=== PATIENT | male | born 1960 | race Two or more races ===

== ENCOUNTER 2019-07-24 14:19 | Inpatient (IN) | payer OTHER, SELFPAY ==
[2019-07-24] VITALS (18 sets, daily range): BP systolic 100–126; BP diastolic 59–79
[~2019-07-24] VITALS: Ht 170.2 cm; Wt 88.5 kg
[2019-07-24] MEDS: POTASSIUM CHL 20MEQ/100ML 100 ML IV SCH ×2 (00:40→23:40)
[~2019-07-24 14:19] MED LIST: ASPI81CH43 PO; ATEN-60 PO; ATOR20TA50 PO; BENA10TA9 PO
[2019-07-24] MEDS ORDERED: SODIUM CHLORIDE 0.9% 1,000 ML IV ONE ×2 (14:33)
[2019-07-24] MEDS ORDERED: MIDAZOLAM DRIP 50 mg/50mL 50 ML IV ONE (14:34)
[2019-07-24] MEDS ORDERED: SUCCINYLCHOLINE CHLORIDE 20 MG/ML 10ML VIAL IV ONE ×2 (14:34→15:45)
[2019-07-24] MEDS ORDERED: ETOMIDATE (2MG/ML) 20ML VIAL IV ONE ×2 (14:35→15:45)
[2019-07-24] MEDS ORDERED: ASCORBIC ACID 500 MG TAB PO ONE (14:45)
[2019-07-24] MEDS ORDERED: cefTRIAXone 1GM/50ML D5W 50 ML IV ONE ×2 (14:45→16:00)
[2019-07-24] MEDS ORDERED: AZITHROMYCIN 500MG/ 250ML 250 ML IV ONE (14:45)
[2019-07-24] MEDS ORDERED: ZINC SULFATE 220mg CAP or TAB PO ONE (14:45)
[2019-07-24] MEDS: MIDAZOLAM DRIP 50 mg/50mL 50 ML IV SCH ×2 (14:53→22:00)
[2019-07-24] MEDS ORDERED: PROPOFOL 100 ML IV ONE (15:01)
[2019-07-24] MEDS: PROPOFOL 100 ML IV SCH ×2 (15:37→22:00)
[2019-07-24 15:45] LABS: Basophils # (auto) 0 10 ^3/uL (0-0.2); Basophils % (auto) 0.6 % (0.0-2.0); Eosinophils # (auto) 0.2 10 ^3/uL (0-0.8); Eosinophils % (auto) 3.4 % (0.0-7.0); Hematocrit 44.2 % (41.0-53.0); Hemoglobin 14.4 g/dL (13.5-17.5); Lymphocytes # (auto) 1.3 10 ^3/uL (0.4-5.4); Lymphocytes % (auto) 18.6 % (10.0-50.0); Mean Corpuscular Hemoglobin 27.3 pg (28.0-32.0); Mean Corpuscular Hgb Conc. 32.5 g/dL (32.0-36.0); Mean Corpuscular Volume 84.1 fL (80.0-100.0); Monocytes # (auto) 0.5 10 ^3/uL (0-1.3); Monocytes % (auto) 7.9 % (0.0-12.0); Neutrophils # (auto) 4.8 10 ^3/uL (1.6-8.6); Neutrophils % (auto) 69.5 % (37.0-80.0); Nucleated Red Blood Cells % 0.1 %; Platelet Count (auto) 354 10^3/uL (140-450); Red Blood Cells 5.26 10^6/uL (4.5-5.90); Red Cell Distribution Width 13.6 % (11.8-14.3); White Blood Cell 6.9 10^3/uL (4.4-10.8)
[2019-07-24] MEDS ORDERED: SODIUM CHLORIDE 0.9% 1,000 ML IV SCH (15:54)
[2019-07-24] MEDS ORDERED: NITROGLYCERIN 0.4 MG SL TAB SL PRN (16:00)
[2019-07-24] MEDS ORDERED: ACETAMINOPHEN 500 MG TAB PO PRN (16:00)
[2019-07-24] MEDS ORDERED: MORPHINE SULF INJ 2 MG/ML SYRINGE 1ML IV PRN (16:00)
[2019-07-24 16:03] LABS: INR 1.08 (0.9-1.15); Partial Thromboplastin Time 29.1 sec (23.64-32.05)
[2019-07-24 16:06] LABS: Urine Bacteria NONE SEEN /hpf (None Seen); Urine Blood 1+ /uL (Negative); Urine Specific Gravity 1.013 (1.001-1.035); Urine WBC <1 /hpf (0 - 3)
[2019-07-24 16:11] LABS: Alanine Aminotransferase 36 U/L (16-61); Albumin 2.4 g/dL (3.4-5.0); Anion Gap 7 (5-15); Aspartate Aminotransferase 42 U/L (15-37); BUN/Creatinine Ratio 13.1; Blood Urea Nitrogen 11 mg/dL (7-18); Calcium 7.6 mg/dL (8.5-10.1); Carbon Dioxide 25 mmol/L (21-32); Chloride 107 mmol/L (98-107); GFR African American 121 mL/min; GFR Non-African American 100 mL/min; Glucose 122 mg/dL (74-106); Magnesium 1.9 mg/dL (1.6-2.6); Sodium 139 mmol/L (136-145)
[2019-07-24 16:16] LABS: Alkaline Phosphatase 70 U/L (45-117); Bilirubin, Total 0.4 mg/dL (0.2-1.0); Total Protein 7.6 g/dL (6.4-8.2)
[2019-07-24 16:17] LABS: Potassium 2.9 mmol/L (3.5-5.1)
[2019-07-24 16:19] LABS: Lactic Acid w/Reflex 2.6 mmol/L (0.4-2.0)
[2019-07-24] MEDS ORDERED: POTASSIUM CHL 20MEQ/100ML 100 ML IV ONE ×2 (16:29→16:45)
[2019-07-24 16:36] LABS: CRP High Sensitivity 5.73 mg/dL (< 0.3)
[2019-07-24] MEDS ORDERED: MAGNESIUM SULFATE 1GM/100ML 100 ML IV ONE (19:30)
[2019-07-24] MEDS ORDERED: FUROSEMIDE 20 MG/2 ML VIAL IV ONE (19:30)
[2019-07-24] MEDS ORDERED: SOD CHL 0.9%/ KCL 40MEQ 1,000 ML IV SCH (19:30)
[2019-07-24] MEDS ORDERED: PANTOPRAZOLE 40 MG/10 ML VIAL INJ IV ONE (19:30)
--- NOTE | 2019-07-24 20:25 | NUR ---
RECEIVED REPORT FROM ERIN PEÑA IN ER. RECEIVED THE PATIENT INTO ROOM 266. RULE OUT COVID PATIENT. ETT TO PORTABLE VENTILATOR. MOVED PATIENT TO OUR BED. PLACED ON BEDSIDE MONITOR. VITAL SIGNS STABLE. RT PLACED THE PATIENT ON A VENTILATOR. RECTAL TEMP PROBE HOOKED UP. NORMOTENSIVE. NORMAL SINUS RHYTHM WITHOUT ECTOPY. RIJ TLC WITH PROPOFOL , VERSED AND A MAINTENANCE FLUID WITH KCL. BROWN PORT OPEN. BRITT. CLEAR ORAL SECRETIONS. SUCTIONED THE ETT FOR CLOUDY WHITE SECRETIONS. ABDOMEN SOFT. ORAL NGT CLAMPED. RESIDUAL WAS 15CC OF WHITE/YELLOW LIQUID. ALL EXTREMITIES WARM. ALL PULSES PALPABLE. PLACED SCDS. HAS AN 18 G IN HIS LEFT AC. SECURED THE IV AND DATED IT. BRITTON TO DOWN DRAIN BAG WITH CLEAR YELLOW LIQUID.
[2019-07-24] MEDS: ATORVASTATIN 20 MG TAB PO SCH (22:00)
[2019-07-24] MEDS ORDERED: ALBUTEROL SULF HFA 90MCG INH 200DOSE IN SCH (22:00)
[2019-07-24] MEDS ORDERED: ATORVASTATIN 20 MG TAB PO SCH (22:00)
--- NOTE | 2019-07-24 22:00 | NUR ---
PATIENT STARTED MOVING AND TRIED TO EXTUBATE HIMSELF. COUGHING. STOPPED THE PATIENT, REHOOKED THE ETT TO THE VENTILATOR TUBING. EXTENSIVE TUBING PLACED SO IV PUMP COULD BE OUTSIDE THE DOOR. STAYED WITH PATIENT TILL HE WAS SEDATED SAFELY.
[2019-07-24] MEDS: ALBUTEROL SULF 2.5 MG/0.5ML(0.5%) NEB SOLN NEB SCH (22:10)
[2019-07-25] VITALS (101 sets, daily range): BP systolic 84–122; BP diastolic 46–70
--- NOTE | 2019-07-25 | NUR ---
VITAL SIGNS STABLE. ON SUFFICIENT SEDATION. REPOSITIONED HIM TO HIS BACK. BRITTON DRAINING CLEAR YELLOW LIQUID. NSR WITHOUT ECTOPY. ONLY ON SEDATION. NO VASOPRESSORS
[2019-07-25] MEDS: MIDAZOLAM DRIP 50 mg/50mL 50 ML IV SCH ×4 (02:00→17:28)
--- NOTE | 2019-07-25 02:00 | NUR ---
NO CHANGE IN STATUS. NSR WITHOUT ECTOPY. SBP STABLE. FOLLOWING THE VENTILATOR. IV SHOWS NO REDNESS OR SWELLING.
[2019-07-25] MEDS: PROPOFOL 100 ML IV SCH ×3 (02:47→13:06)
--- NOTE | 2019-07-25 04:00 | NUR ---
VSS. NO CHANGE IN ASSESSMENT. REPOSITIONED. ORAL CARE DONE. LARGE URINE OUTPUT.
[2019-07-25] MEDS ORDERED: FUROSEMIDE 20 MG/2 ML VIAL IV SCH (06:00)
--- NOTE | 2019-07-25 06:00 | NUR ---
AM LABS SENT. CXR COMPLETED. REPOSITIONED TO LEFT SIDE. ORAL CARE DONE. SUCTIONED THE ETT FOR A SMALL AMOUNT OF CLOUDY WHITE SECRETIONS. RIGHT NARE NGT IS CLAMPED.
[2019-07-25] MEDS: ALBUTEROL SULF 2.5 MG/0.5ML(0.5%) NEB SOLN NEB SCH ×3 (06:18→22:10)
[2019-07-25 07:23] LABS: Basophils # (auto) 0 10 ^3/uL (0-0.2); Basophils % (auto) 0.5 % (0.0-2.0); Eosinophils # (auto) 0.3 10 ^3/uL (0-0.8); Hematocrit 41.1 % (41.0-53.0); Hemoglobin 13.4 g/dL (13.5-17.5); Lymphocytes # (auto) 1.1 10 ^3/uL (0.4-5.4); Mean Corpuscular Hemoglobin 27.3 pg (28.0-32.0); Mean Corpuscular Hgb Conc. 32.7 g/dL (32.0-36.0); Mean Corpuscular Volume 83.4 fL (80.0-100.0); Monocytes # (auto) 0.6 10 ^3/uL (0-1.3); Monocytes % (auto) 8.9 % (0.0-12.0); Neutrophils # (auto) 4.6 10 ^3/uL (1.6-8.6); Neutrophils % (auto) 69.6 % (37.0-80.0); Nucleated Red Blood Cells % 0.2 %; Platelet Count (auto) 382 10^3/uL (140-450); Red Blood Cells 4.92 10^6/uL (4.5-5.90); Red Cell Distribution Width 14.1 % (11.8-14.3); White Blood Cell 6.6 10^3/uL (4.4-10.8)
[2019-07-25 07:30] LABS: INR 1.04 (0.9-1.15); Partial Thromboplastin Time 29.3 sec (23.64-32.05)
[2019-07-25 07:36] LABS: Potassium 3.8 mmol/L (3.5-5.1)
--- NOTE | 2019-07-25 07:50 | NUR ---
ASSESS- PT. LYING IN BED ON VENT SIZE # 8.0 ET, 23 AT THE LIP, AC-16, TV-500, PEEP-5, FIO2-70%. PT. HAS GAG/COUGH REFLEX. LUNGS CLEAR ZACH. INSPIRATORY AND EXPIRATORY. ON VERSED GTT. AT 10 MG./HR. AND PROPOFOL GTT. AT 30 MCG. RESPONDS TO PAINFUL/TACTILE STIMULI. NO MOVEMENT OF EXTREMITIES SEEN AT THIS TIME. NGT RT. NARE CLAMPED, NPO. ABD. SOFT, FLAT. BOWEL SOUNDS ALL FOUR QUADRANTS. F/C TO GRAVITY WITH CLEAR YELLOW URINE. RADIAL PULSES STRONG, PALPABLE ZACH. DORSALIS PEDAL PULSES STRONG, PALPABLE ZACH. NO EDEMA. SCD'S ZACH. LE. SKIN INTACT. TLC RT. IJ INTACT WITH DSG. D/I. RECTAL PROBE IN PLACE. SBP 90'S. ON AIRBORNE PRECAUTIONS, R/O COVID-19.
[2019-07-25 07:53] LABS: Albumin 2.3 g/dL (3.4-5.0); BUN/Creatinine Ratio 11.5; Bilirubin, Total 0.4 mg/dL (0.2-1.0); CRP High Sensitivity 3.5 mg/dL (< 0.3); Calcium 7.8 mg/dL (8.5-10.1); Magnesium 2.6 mg/dL (1.6-2.6); Phosphorus 3.8 mg/dL (2.5-4.90); Total Protein 7.4 g/dL (6.4-8.2)
--- NOTE | 2019-07-25 09:10 | NUR ---
JUNIOR SULLIVAN Provider/Hospitalist at bedside. GAVE UPDATE ON PT. NEW ORDERS RECEIVED.
[2019-07-25] MEDS ORDERED: POTASSIUM CHL 20MEQ/100ML 100 ML IV ONE (09:30)
[2019-07-25] MEDS ORDERED: FUROSEMIDE 20 MG/2 ML VIAL IV ONE (09:30)
[2019-07-25] MEDS: PANTOPRAZOLE 40 MG/10 ML VIAL INJ IV SCH (09:44)
[2019-07-25] MEDS: cefTRIAXone 1GM/50ML D5W 50 ML IV SCH (09:44)
[2019-07-25] MEDS: ASPirin 81 mg TAB PO SCH (09:45)
[2019-07-25] MEDS: ASCORBIC ACID 1,000 MG TAB PO SCH (09:45)
[2019-07-25] MEDS: CHOLECALCIFEROL (VITD3) 1,000UNIT=25mCg TAB PO SCH (09:45)
[2019-07-25] MEDS: ENOXAPARIN SOD 100 MG/1 ML SYRINGE SC SCH ×2 (09:46→22:36)
[2019-07-25] MEDS: ZINC SULFATE 220mg CAP or TAB PO SCH (09:46)
[2019-07-25] MEDS ORDERED: ENOXAPARIN SOD 40 MG/0.4 ML SYRINGE SC SCH (10:00)
[2019-07-25] MEDS ORDERED: ATENOLOL 25 MG TAB PO SCH (10:00)
[2019-07-25] MEDS ORDERED: BENAZEPRIL HCL 10 MG TAB PO SCH (10:00)
[2019-07-25] MEDS: AZITHROMYCIN 500MG/ 250ML 250 ML IV SCH (10:57)
[2019-07-25] MEDS: fentaNYL Drip 2500mCg/250mlNS 250 ML IV SCH (10:57)
[2019-07-25] MEDS ORDERED: FUROSEMIDE 40 MG/4 ML VIAL ONE (11:27)
[2019-07-25 13:11] LABS: Alcohol, Urine < 3.0 mg/dL (0-5); Barbiturate Scree,Urine NEGATIVE (NEGATIVE); Benzodiazephine Screen, Urine POSITIVE (NEGATIVE); Cannabinoid Screen, Urine NEGATIVE (NEGATIVE); Cocaine Screen, Urine NEGATIVE (NEGATIVE); Opiate Scree,Urine NEGATIVE (NEGATIVE); Phencyclidine Screen, Urine NEGATIVE (NEGATIVE)
[2019-07-25 13:19] LABS: Amphetamine Screen, Urine NEGATIVE (NEGATIVE)
--- NOTE | 2019-07-25 13:49 | NUR ---
Called/paged JUNIOR SULLIVAN called re:. Waiting for call back. Continue care.
--- NOTE | 2019-07-25 13:50 | NUR ---
returned call NATE, JUNIOR returned call, updated on patient status and reason for call, orders received. Continue care.
--- NOTE | 2019-07-25 14:00 | NUR ---
SBP MID 80'S. SR, HR 80'S WITHOUT ECTOPY. STARTED PT. ON LEVOPHED GTT. AT 2 MCG. MONITORING BP.
[2019-07-25] MEDS: NOREPINEPHRINE 8 MG/250ML KIT 250 ML IV SCH (14:01)
--- NOTE | 2019-07-25 14:30 | NUR ---
SBP NOW IN THE 90'S. MONITORING BP.
--- NOTE | 2019-07-25 14:35 | NUR ---
TEMP 99.5 RECTALLY. PLACED ICE PACKS ZACH. AXILLA. NO COVERS ON PT.
--- NOTE | 2019-07-25 16:30 | NUR ---
TEMP 99.3 RECTALLY. ICE PACKS REMAIN IN PLACE ZACH. AXILLA.
--- NOTE | 2019-07-25 16:52 | NUR ---
DR. MARVIN Provider/Hospitalist at bedside. GAVE UPDATE ON PT. NEW ORDERS RECEIVED.
--- NOTE | 2019-07-25 17:40 | NUR ---
SET UP CVP VIA TLC RT. IJ VIA DISTAL PORT, ZEROED. CVP READING 14-15 CURRENTLY.
--- NOTE | 2019-07-25 18:00 | NUR ---
SBP ONE TEENS TO LOW 120'S. TITRATED OFF LEVOPHED GTT. MONITORING BP.
--- NOTE | 2019-07-25 18:36 | NUR ---
PT'S. DAUGHTER CALLED LEANNA MCCRARYOZ AND GAVE CONSENT FOR ARTERIAL LINE PLACEMENT TOMORROW BY DR. MARVIN. 2 RN'S VERIFIED FOR PHONE CONSENT.
--- NOTE | 2019-07-25 20:30 | NUR ---
Opening Shift Note Assumed care of patient, intubated, sedated. Breathing on ETT with AC mode ventilator, even and nonlabored, synchronized, No S/S of distress/SOB or pain. NGT to right nare, positive placement, no GI content noted, marked at nare 55 cms. TLC at right IJ, clean and dry site, Tegaderm slightly peeled off, will change d/s later. CVP zeroed and position transducer at mid 5th axilla. Noted TV at 55oml, will confirm with RT and MD order. Kaminski's catheter hung to gravity with clear light yue urine. Both hands on mittens. SCD on. Bed in low position, fall and safety precaution in place, on airborne isolation, all alarms are audible. No visitor allowed at this pandemic time, will continue to monitor for changes Q1hr and PRN.
--- NOTE | 2019-07-25 22:15 | NUR ---
Condition update Pt's condition and v/s stable. BT 99.9, will remain cooling measures and changed ice packs. RT at bedside. Continue monitoring.
[2019-07-25] MEDS: ATORVASTATIN 20 MG TAB PO SCH (22:35)
--- NOTE | 2019-07-25 23:45 | NUR ---
Patient bathe/linen change Patient given complete bath with CHG wipes. Skin integrity assessed for any changes, no new changes. Z-guard applied to karl area and sacrum. Kaminski's catheter changer fixer applied to right upper thigh. New NGT tape changed. Partial linens changed. Patient repositioned to prevent pressure ulcer. Cooling measures re-applied after bath. Mouth care done. Pt tolerated fairly due to coughing and grabbing the lines and tubes while awake and activities. Mittens re-applied for safety.
[2019-07-26] VITALS (99 sets, daily range): BP systolic 86–126; BP diastolic 47–73
[2019-07-26] MEDS: MIDAZOLAM DRIP 50 mg/50mL 50 ML IV SCH ×5 (00:03→21:12)
--- NOTE | 2019-07-26 02:12 | NUR ---
Condition update Pt's condition and v/s stable. No coughing. Fever decreased after bath. Body Temp 98.6F. Continue monitoring.
[2019-07-26 04:52] LABS: Basophils # (auto) 0.1 10 ^3/uL (0-0.2); Basophils % (auto) 0.8 % (0.0-2.0); Eosinophils # (auto) 0.3 10 ^3/uL (0-0.8); Eosinophils % (auto) 4.8 % (0.0-7.0); Hematocrit 38.7 % (41.0-53.0); Hemoglobin 12.7 g/dL (13.5-17.5); Lymphocytes # (auto) 1.5 10 ^3/uL (0.4-5.4); Mean Corpuscular Hemoglobin 27.4 pg (28.0-32.0); Mean Corpuscular Hgb Conc. 32.9 g/dL (32.0-36.0); Mean Corpuscular Volume 83.3 fL (80.0-100.0); Monocytes # (auto) 0.6 10 ^3/uL (0-1.3); Monocytes % (auto) 9.1 % (0.0-12.0); Neutrophils # (auto) 4.1 10 ^3/uL (1.6-8.6); Neutrophils % (auto) 62.3 % (37.0-80.0); Nucleated Red Blood Cells % 0.1 %; Platelet Count (auto) 394 10^3/uL (140-450); Red Blood Cells 4.64 10^6/uL (4.5-5.90); White Blood Cell 6.5 10^3/uL (4.4-10.8)
[2019-07-26 05:10] LABS: Albumin 2.3 g/dL (3.4-5.0); BUN/Creatinine Ratio 16.7; Potassium 3.7 mmol/L (3.5-5.1)
--- NOTE | 2019-07-26 05:10 | NUR ---
X-ray at bedside.
[2019-07-26 05:13] LABS: Bilirubin, Total 0.4 mg/dL (0.2-1.0); Total Protein 7.2 g/dL (6.4-8.2)
--- NOTE | 2019-07-26 05:20 | NUR ---
TLC d/s changed. TLC d/s started to peel off. TLC d/s done with sterile technique, Biopatch applied. Site CDI.
[2019-07-26] MEDS: PROPOFOL 100 ML IV SCH (05:54)
[2019-07-26] MEDS: ALBUTEROL SULF 2.5 MG/0.5ML(0.5%) NEB SOLN NEB SCH ×3 (06:00→22:05)
--- NOTE | 2019-07-26 06:00 | NUR ---
Summary Pt v/s and condition stable. Low grade fever. Fever subsided after AM care and cooling measures. Pt woke and reached to ETT when stimulated/ activities, gag reflex positive. No eyes opened. Scant saliva, scant sputum. UOP 315ml, cloudy light yue urine. Continue care and will endorse care to day nurse.
--- NOTE | 2019-07-26 07:30 | NUR ---
REPORT RECEIVED FROM HIGH LIFT DRIVER NURSE. PATIENT RESTING IN BED AT THIS TIME. RESPIRATIONS EVEN AND UNLABORED, INTUBATED AND SEDATED. NO SIGNS OF ACUTE DISTRESS NOTED. BED IN LOW POSITION. WILL CONTINUE TO MONITOR.
[2019-07-26] MEDS: cefTRIAXone 1GM/50ML D5W 50 ML IV SCH (08:17)
[2019-07-26] MEDS ORDERED: FUROSEMIDE 20 MG/2 ML VIAL IV ONE (08:45)
--- NOTE | 2019-07-26 08:50 | NUR ---
UPDATED DAUGHTER ON PATIENT STATUS. ALL QUESTIONS AND CONCERNS ADDRESSED. WILL CALL IF ANY CHANGES TO PATIENT STATUS.
--- NOTE | 2019-07-26 08:56 | NUR ---
NATE STANLEY CARTOGRAPHIC DESIGNER ON UNIT AND UPDATED ON PATIENT STATUS. ALL ORDERS NOTED IN CHART.
[2019-07-26] MEDS: fentaNYL Drip 2500mCg/250mlNS 250 ML IV SCH (09:29)
--- NOTE | 2019-07-26 10:00 | NUR ---
TEMP PATIENTS TEMP INCREASING, CURRENTLY 99.9F RECTALLY. APPLIED COOLING MEASURES TO PATIENT. WILL CONTINUE TO MONITOR.
[2019-07-26] MEDS: ASCORBIC ACID 1,000 MG TAB PO SCH (10:11)
[2019-07-26] MEDS: PANTOPRAZOLE 40 MG/10 ML VIAL INJ IV SCH (10:11)
[2019-07-26] MEDS: ZINC SULFATE 220mg CAP or TAB PO SCH (10:11)
[2019-07-26] MEDS: ENOXAPARIN SOD 100 MG/1 ML SYRINGE SC SCH ×2 (10:11→22:11)
[2019-07-26] MEDS: ASPirin 81 mg TAB PO SCH (10:11)
[2019-07-26] MEDS: CHOLECALCIFEROL (VITD3) 1,000UNIT=25mCg TAB PO SCH (10:12)
[2019-07-26] MEDS: AZITHROMYCIN 500MG/ 250ML 250 ML IV SCH (10:12)
--- NOTE | 2019-07-26 10:45 | NUR ---
WOUND CARE NOTE: PATIENT RECENTLY ADMITTED TO [facility] WITH DIAGNOSIS OF VIRAL PNA. HE HAS CURRENT KANE SCORE OF 12. PATIENT IS INTUBATED, SEDATED. PATIENT ON AIRBORNE PRECAUTIONS FOR POSITIVE COVID 19. HE CURRENTLY IS WOUND FREE. SKIN/WOUND CARE PLAN IMPLEMENTED. PATIENT WOULD BENEFIT FROM FREQUENT TURN SCHEDULE Q 2 HOURS, PRN CONDITION PERMITS, WITH PRESSURE REDISTRIBUTION USING PILLOWS/WEDGES, BID/PRN APPLICATION WITH MOISTURE BARRIER CREAM, OPTIFOAM GENTLE SACRAL DRESSING, DIETARY CONSULT, SKIN/WOUND CARE PLAN, CONTINUED MONITORING BY WOUND CARE TEAM.
[2019-07-26] MEDS: PIPERACILLIN-TAZOB 3.375GM 100 ML IV SCH ×3 (12:33→23:33)
[2019-07-26] MEDS: NOREPINEPHRINE 8 MG/250ML KIT 250 ML IV SCH (14:00)
--- NOTE | 2019-07-26 20:00 | NUR ---
Opening Shift Note Assumed care of patient, intubated and sedated, in airborne isolation with Hepa filter on. Breathing on ETT with AC mode ventilator, even and nonlabored, synchronized, No S/S of distress/SOB or pain. NGT on right nare, clamped, marked at 55 cms, positive position, scant clear gastric juice noted in the tube. TLC at right IJ, CDI site. 18G saline lock at left AC, CDI site, flushed well. Mittens on both hands for safety. Kaminski's catheter hung to gravity with cloudy light yue urine and sediments. SCD on both legs. Bed in low position, fall and safety precaution in place, all alarms are audible. No visitors allowed at this pandemic time, will continue to monitor for changes Q1hr and PRN.
--- NOTE | 2019-07-26 20:15 | NUR ---
IV insertion IV access obtained, via clean sterile technique by inserting 20 gauge catheter at RIGHT HAND after 1 attempt. IV secured properly. No trauma to site. Patient tolerated well.
--- NOTE | 2019-07-26 20:50 | NUR ---
Family called. Patient's condition and POC updated to Maria Alejandra; Patient's DTR. All questions and concerned answered, family verbalized understanding.
[2019-07-26] MEDS: ATORVASTATIN 20 MG TAB PO SCH (22:10)
--- NOTE | 2019-07-26 22:20 | NUR ---
Condition update Temp increased 100.4F rectally, Tylenol given as order. Cooling measures continue. CVP zeroed and leveled, 5 cmH2O. Rotated BP cuff to left upper arm. Re-positioned Pt to prevent pressure ulcer. Pillows off-loaded both legs an heels. RT at bedside. Mouth care and suction done, lips moisturizer applied. Urine with sediments. Kaminski's clamped for urine c/s. Continue monitoring and care.
[2019-07-27] VITALS (102 sets, daily range): BP systolic 83–133; BP diastolic 42–76
[2019-07-27] MEDS: MIDAZOLAM DRIP 50 mg/50mL 50 ML IV SCH ×5 (00:58→18:00)
--- NOTE | 2019-07-27 01:05 | NUR ---
Condition update Fever subsided after Tylenol given, temp 98.6F. Pt's condition stable. BP controlled with low dose Levophed at 4mcg. Breathing synchronized with ventilator, POX 98%. Continue monitoring.
--- NOTE | 2019-07-27 03:07 | NUR ---
Bed scale broken, unable to weigh. Addendum: 07/27/19 at 0308 by Quyen Jolly RN Amended: Links added.
--- NOTE | 2019-07-27 04:45 | NUR ---
Patient bathe/linen change Patient given complete bath with CHG wipes. Kaminski's catheter care done. All EKG electrodes changed. Skin integrity assessed for any changes, skin intact. Z-guard applied to karl area. Complete linens changed. Rectal probe tape changed. Patient repositioned to prevent pressure ulcer. Mouth care done. Lip moisturizing applied. SCD re-applied to both legs. Legs and heels off-loaded with pillows. Pt slightly coughing while turning, tolerated well, no desaturation or labored breathing. Continue care.
[2019-07-27] MEDS: fentaNYL Drip 2500mCg/250mlNS 250 ML IV SCH (04:50)
[2019-07-27 05:58] LABS: Basophils # (auto) 0.1 10 ^3/uL (0-0.2); Eosinophils # (auto) 0.3 10 ^3/uL (0-0.8); Eosinophils % (auto) 4.7 % (0.0-7.0); Hematocrit 39.6 % (41.0-53.0); Hemoglobin 13.1 g/dL (13.5-17.5); Lymphocytes # (auto) 1.9 10 ^3/uL (0.4-5.4); Lymphocytes % (auto) 26.4 % (10.0-50.0); Mean Corpuscular Hemoglobin 27.5 pg (28.0-32.0); Mean Corpuscular Hgb Conc. 33.2 g/dL (32.0-36.0); Monocytes # (auto) 0.6 10 ^3/uL (0-1.3); Monocytes % (auto) 8.9 % (0.0-12.0); Neutrophils # (auto) 4.2 10 ^3/uL (1.6-8.6); Nucleated Red Blood Cells % 0.1 %; Platelet Count (auto) 458 10^3/uL (140-450); Red Blood Cells 4.77 10^6/uL (4.5-5.90); Red Cell Distribution Width 14.1 % (11.8-14.3); White Blood Cell 7.1 10^3/uL (4.4-10.8)
[2019-07-27] MEDS: PIPERACILLIN-TAZOB 3.375GM 100 ML IV SCH ×4 (06:00→23:44)
--- NOTE | 2019-07-27 06:00 | NUR ---
Summary Condition stable. Max body temperature 100.4F decreased after Tylenol given to 98.6F. BP controlled with Levophed 2-4 mcg. Moderate to deep sedation with Fentanyl 50mcg, Propofol 10 and Versed 14. EKG showed SR with no ectopy. Positive cough and gag, small amount of oral and sputum amount. Cloudy urine with sediments, urine c/s sent. Continue care and will endorse to day shift. Addendum: 07/27/19 at 0705 by Quyen Jolly RN UOP 22.00pm 120ml 02.00am 100ml 06.00am 105ml Total 325ml CVP 4-9
[2019-07-27] MEDS: ALBUTEROL SULF 2.5 MG/0.5ML(0.5%) NEB SOLN NEB SCH ×3 (06:11→22:42)
[2019-07-27 06:15] LABS: Albumin 2.4 g/dL (3.4-5.0); Calcium 8.2 mg/dL (8.5-10.1); Potassium 3.4 mmol/L (3.5-5.1)
[2019-07-27 06:18] LABS: BUN/Creatinine Ratio 15.4; Bilirubin, Total 0.7 mg/dL (0.2-1.0); Total Protein 7.9 g/dL (6.4-8.2)
--- NOTE | 2019-07-27 06:30 | NUR ---
Family called. Patient's daughter; Maria Alejandra called, updated given to the daughter.
--- NOTE | 2019-07-27 07:30 | NUR ---
REPORT REPORT RECEIVED FROM SALAS RNMARCELINO. PT IN ISOLATION FOR + COVID 19. IN ROOM WITH SLIDING GLASS DOORS AND ABLE TO VISUALIZE PT, LIFE TESTER OUTBOARD MOTORS AND VENTILATOR. IV PUMPS OUTSIDE THE DOOR. PT APPEARS TO BE RESTING WITH NO DISTRESS NOTED. VSS. CONTINUE TO MONITOR.
[2019-07-27] MEDS: PROPOFOL 100 ML IV SCH ×2 (07:58→22:50)
[2019-07-27] MEDS: NOREPINEPHRINE 8 MG/250ML KIT 250 ML IV SCH (08:07)
--- NOTE | 2019-07-27 08:15 | NUR ---
PT TEACHING PT UNABLE TO BENEFIT FROM PT TEACHING AT THIS TIME PT IS SEDATED WHILE ON THE VENTILATOR. Addendum: 07/27/19 at 0940 by Wendy Francisco RN Amended: Links added.
--- NOTE | 2019-07-27 08:15 | NUR ---
ASSESSMENT PT IN ISOLATION FOR + COVID 19. PT INTUBATED AND SEDATED ON FENTANYL, DIPRIVAN AND VERSED. NO SPONTANEOUS MOVEMENT NOTED. MITTENS TO BOTH HANDS TO PREVENT REMOVAL OF ANY TUBES. VENTILATOR SETTINGS: 8 FR ETT/24 AT THE LIP, TV 500, AC 16, 50% FIO2 AND PEEP OF 8. LUNGS CLEAR THROUGHOUT BUT DIMINISHED AT THE BASES. SUCTIONED BOTH VIA ETT AND ORALLY FOR SCANT AMOUNT OF THIN CLEAR FLUID. TELE SR 76. PALPABLE PULSES TO ALL EXTREMITIES WITH NO EDEMA NOTED. SCS TO BLE. ABD SOFT WITH VERY HYPOACTIVE BOWEL SOUNDS. RIGHT NARES NGT WITH + PLACEMENT AND NO RESIDUAL NOTED. LAST BM IS UNKNOWN. BRITTON CATHETER DRAINING YELLOW URINE WITH SMALL AMOUNT OF SEDIMENT. TURNED PT TO HIS BACK AND SKIN IS INTACT. PT WITH PERIPHERAL IV TO RIGHT HAND, SALINE LOCK TO LAC AND RIJ TLC, ALL WITH SITES BENIGN. RAILS UP X4 AND BED IN LOW POSITION FOR PT SAFETY. CONTINUE TO MONITOR. Addendum: 07/27/19 at 1344 by Wendy Francisco RN TELE SR WITH ST ELEVATION IN LEADS I AND II.
[2019-07-27] MEDS: AZITHROMYCIN 500MG/ 250ML 250 ML IV SCH (09:55)
[2019-07-27] MEDS: PANTOPRAZOLE 40 MG/10 ML VIAL INJ IV SCH (09:55)
[2019-07-27] MEDS: ASPirin 81 mg TAB PO SCH (09:56)
[2019-07-27] MEDS: ZINC SULFATE 220mg CAP or TAB PO SCH (09:56)
[2019-07-27] MEDS: ENOXAPARIN SOD 100 MG/1 ML SYRINGE SC SCH ×2 (09:57→22:18)
[2019-07-27] MEDS: ASCORBIC ACID 1,000 MG TAB PO SCH (09:57)
[2019-07-27] MEDS: CHOLECALCIFEROL (VITD3) 1,000UNIT=25mCg TAB PO SCH (09:57)
--- NOTE | 2019-07-27 10:00 | NUR ---
PT REASSESSED AND TURNED FOR COMFORT. ADMINISTERED SCHEDULED MEDS. CONTINUE TO MONITOR.
--- NOTE | 2019-07-27 12:10 | NUR ---
LUNGS REMAIN CLEAR THROUGHOUT BUT DIMINISHED AT THE BASES POSTERIOR. SUCTIONED BOTH VIA ETT AND ORALLY WITH NO RETURN. O2 TURNED DOWN TO 45%. CONTINUE TO MONITOR O2 SATURATIONS.
--- NOTE | 2019-07-27 12:30 | NUR ---
TRUCK LEASING MANAGER/CARDIOLOGY MIKAYLA PENG, CARDIOLOGY TRUCK LEASING MANAGER, HERE TO CHECK ON PT. UPDATED ON CURRENT STATUS. PT WILL LIKELY HAVE AN ECHOCARDIOGRAM AND CARDIOLYTE STRESS TEST WHEN MORE STABLE AND OFF THE VENTILATOR.
--- NOTE | 2019-07-27 12:40 | NUR ---
MD VISIT DR MORTON HERE AND UPDATED ON THE PT'S CURRENT CONDITION, INCLUDING VS, ON LOW DOSE LEVOPHED, UOP, K OF 3.4 AND ASKED ABOUT NUTRITION. SHE STATED THAT SHE WILL PUT IN ORDERS.
[2019-07-27] MEDS ORDERED: FUROSEMIDE 40 MG/4 ML VIAL IV ONE (14:00)
[2019-07-27] MEDS ORDERED: Jevity 1.2 Cal/Fiber 1 Liter GT SCH (14:00)
--- NOTE | 2019-07-27 14:44 | NUR ---
Nutrition Assessment Notes Please refer to link for full assessment notes. Est Energy needs: 2909-7028 kcals (17-20 kcal/kgBW) Est Protein needs: 134 gms/day (2 gm/kgIBW) Will continue to monitor and reassess prn. Addendum: 07/27/19 at [address] Amended: Links added.
[2019-07-27] MEDS ORDERED: FUROSEMIDE INJECTION 10 ML ONE (15:45)
[2019-07-27] MEDS: POTASSIUM CHL 20MEQ/100ML 100 ML IV SCH ×2 (15:53→18:00)
--- NOTE | 2019-07-27 18:15 | NUR ---
SPOKE WITH PT'S DAUGHTER, MAHOGANY, AND UPDATED HER ON THE PT'S CURRENT CONDITION. I ANSWERED HER QUESTIONS.
--- NOTE | 2019-07-27 19:50 | NUR ---
REPORT REPORT GIVEN TO SAAD MARINA RN.
--- NOTE | 2019-07-27 20:00 | NUR ---
SHIFT OPENING NOTE RECEIVED PATIENT INTUBATED AND SEDATED. ON PROPOFOL AT 9, VERSED AT 10 AND FENT AT 50. GAG REFLEX INTACT. LEVOPHED AT 2, VENT SETTINGS AC 16, TV 500, FIO2 35%, PEEP 8, SMALL AMOUNT OF RED TINGED SECRETIONS SUCTIONED FROM ETT. NG TO RIGHT CARE. VERIFIED PLACEMENT, STARTED ON FEEDINGS, JEVITY AT 20 ML/H, GOAL IS 30 ML/H. BRITTON CATH DRAINING YELLOW URINE TO GRAVITY. RIGHT IJ 3 LUMEN INFUSING DRIPS. SCD'S ON. PHYSICAL ASSESSMENT COMPLETED, SEE INTERVENTIONS. WILL CLOSELY MONITOR.
[2019-07-27] MEDS: ATORVASTATIN 20 MG TAB PO SCH (22:18)
[2019-07-28] VITALS (94 sets, daily range): BP systolic 86–128; BP diastolic 52–74
--- NOTE | 2019-07-28 02:00 | NUR ---
ROUNDS PATIENT IS LAYING IN BED WITH EYES CLOSED. REMAINS INTUBATED AND SEDATED. VS STABLE. WILL CONTINUE TO CLOSELY MONITOR.
[2019-07-28] MEDS: ALBUTEROL SULF 2.5 MG/0.5ML(0.5%) NEB SOLN NEB SCH ×3 (06:03→22:00)
[2019-07-28] MEDS: PIPERACILLIN-TAZOB 3.375GM 100 ML IV SCH ×4 (06:30→23:35)
--- NOTE | 2019-07-28 06:45 | NUR ---
END OF SHIFT PATIENT IS LAYING IN BED CALMLY SLEEPING. INTUBATED AND SEDATED. ON PROP AT 10, VERSED AT 10 AND FENTANYL AT 100. WILL GIVE REPORT AND ENDORSE CARE TO THE DAY SHIFT RN.
[2019-07-28 06:57] LABS: Basophils # (auto) 0.1 10 ^3/uL (0-0.2); Basophils % (auto) 0.9 % (0.0-2.0); Eosinophils # (auto) 0.4 10 ^3/uL (0-0.8); Lymphocytes # (auto) 2.1 10 ^3/uL (0.4-5.4); Nucleated Red Blood Cells % 0.1 %
[2019-07-28 07:02] LABS: Eosinophils % (auto) 6.4 % (0.0-7.0); Lymphocytes % (auto) 30.6 % (10.0-50.0); Mean Corpuscular Hemoglobin 27.6 pg (28.0-32.0); Mean Corpuscular Hgb Conc. 33.3 g/dL (32.0-36.0); Mean Corpuscular Volume 82.9 fL (80.0-100.0); Monocytes # (auto) 0.5 10 ^3/uL (0-1.3); Monocytes % (auto) 7.2 % (0.0-12.0); Neutrophils # (auto) 3.8 10 ^3/uL (1.6-8.6); Neutrophils % (auto) 54.9 % (37.0-80.0); Platelet Count (auto) 491 10^3/uL (140-450); Red Cell Distribution Width 13.8 % (11.8-14.3)
[2019-07-28 07:28] LABS: Albumin 2.6 g/dL (3.4-5.0); Calcium 8.4 mg/dL (8.5-10.1); Potassium 3.8 mmol/L (3.5-5.1)
[2019-07-28 07:34] LABS: BUN/Creatinine Ratio 12.6; Bilirubin, Total 0.5 mg/dL (0.2-1.0)
--- NOTE | 2019-07-28 07:45 | NUR ---
AM ASSESSMENT COMPLETED. ALARMS VERIFIED. CHART CHECK DONE.
--- NOTE | 2019-07-28 09:15 | NUR ---
[id number] PT'S BP CUFF WAS TAKEN OFF BY RT FOR ABG DRAW AND FORGOTTEN TO BE PLACED BACK ON. PT'S BP WNL WHEN CUFF WAS PUT BACK ON.
[2019-07-28] MEDS: AZITHROMYCIN 500MG/ 250ML 250 ML IV SCH (09:35)
[2019-07-28] MEDS: PANTOPRAZOLE 40 MG/10 ML VIAL INJ IV SCH (09:35)
[2019-07-28] MEDS: ENOXAPARIN SOD 100 MG/1 ML SYRINGE SC SCH ×2 (09:36→22:44)
[2019-07-28] MEDS: ASPirin 81 mg TAB PO SCH (09:38)
[2019-07-28] MEDS: CHOLECALCIFEROL (VITD3) 1,000UNIT=25mCg TAB PO SCH (09:38)
[2019-07-28] MEDS: ASCORBIC ACID 1,000 MG TAB PO SCH (09:38)
[2019-07-28] MEDS: ZINC SULFATE 220mg CAP or TAB PO SCH (09:39)
[2019-07-28] MEDS ORDERED: methylPREDNISolone SOD SUCC 40 MG/ML VL IV ONE (10:15)
[2019-07-28] MEDS: FUROSEMIDE 100 MG/10ML VIAL IV SCH (10:33)
--- NOTE | 2019-07-28 11:00 | NUR ---
DR. MARVIN CALLED TO GET AN UPDATE ON PT'S CONDITION. GRANT WRIGHT'Wu. WANTS TO START TOTILUZUMAB 400 MG PO BID X 2 DOSES.
--- NOTE | 2019-07-28 11:09 | NUR ---
PAGED DR. OH TO GET APPROVAL TO AUTHORIZE COVID 19 MED TOTILUZUMAB 400 MG Q 12 X 2 DOSES. PT MEETS CRITERIA HAS + FEVER AND HAS ELEVATED FERRETING. ALL CULTURES ARE NEGATIVE. PER DR. MARVIN REQUEST.
--- NOTE | 2019-07-28 11:28 | NUR ---
DR. OH CAME IN AND APPROVED MEDICATION FOR PT. I CALL PHARMACIST. MEDICATION WILL BE ORDER BY PHARMACIST.
[2019-07-28] MEDS ORDERED: TOCILIZUMAB 400 MG in SODIUM CHL 0.9% 80 ML IV SCH (12:00)
--- NOTE | 2019-07-28 12:25 | NUR ---
DR. CHRISTENSEN ROUNDING ON PT. NEW ORDERS RECEIVED.
[2019-07-28] MEDS ORDERED: LINEZOLID 600MG/300ML 300 ML IV SCH (13:00)
[2019-07-28] MEDS: NOREPINEPHRINE 8 MG/250ML KIT 250 ML IV SCH (14:00)
[2019-07-28] MEDS: methylPREDNISolone SOD SUCC 40 MG/ML VL IV SCH ×2 (14:02→22:43)
[2019-07-28] MEDS: ACETAMINOPHEN 650 mg PER 20 mL UD PO SCH (14:03)
[2019-07-28] MEDS: diphenhdrAMINE HCL 50 MG/1 ML VL IV SCH (15:13)
[2019-07-28] MEDS: fentaNYL Drip 2500mCg/250mlNS 250 ML IV SCH (15:34)
[2019-07-28] MEDS: TOCILIZUMAB 400 MG in SODIUM CHL 0.9% 80 ML IV SCH (15:55)
[2019-07-28] MEDS: MIDAZOLAM DRIP 50 mg/50mL 50 ML IV SCH (17:58)
--- NOTE | 2019-07-28 19:30 | NUR ---
OPENING NOTE RECEIVED REPORT FROM DAY NURSE. PT INTUBATED AND SEDATED. COMPLETE PHYSICAL ASSESSMENT UNDER INTERVENTIONS. BREATHING EVEN AND UNLABORED WITH NO DISTRESS NOTED. BED LOCKED IN PLACE FOR SAFETY. WILL CONTINUE TO MONITOR. ISOLATION PRECAUTIONS IN PLACE.
[2019-07-28] MEDS: SODIUM CHL 3% 500 ML BAG IN SCH (22:00)
[2019-07-28] MEDS: ATORVASTATIN 20 MG TAB PO SCH (22:00)
--- NOTE | 2019-07-28 22:10 | NUR ---
PT RESTING IN BED NO DISTRESS NOTED. WILL CONTINUE TO MONITOR.
[2019-07-28] MEDS: acetaZOLAMIDE 250 MG TAB NG SCH (22:43)
[2019-07-29] VITALS (97 sets, daily range): BP systolic 86–154; BP diastolic 39–83
[2019-07-29] MEDS: diphenhdrAMINE HCL 50 MG/1 ML VL IV SCH (00:51)
[2019-07-29] MEDS: methylPREDNISolone SOD SUCC 40 MG/ML VL IV SCH ×3 (00:52→20:43)
[2019-07-29] MEDS: ACETAMINOPHEN 650 mg PER 20 mL UD PO SCH (00:53)
--- NOTE | 2019-07-29 01:20 | NUR ---
PT REPOSITIONED NO DISTRESS NOTED. BREATHING EVEN AND UNLABORED. NO BM AND BRITTON DRAINING TO GRAVITY.
[2019-07-29] MEDS: TOCILIZUMAB 400 MG in SODIUM CHL 0.9% 80 ML IV SCH (01:44)
[2019-07-29] MEDS: MIDAZOLAM DRIP 50 mg/50mL 50 ML IV SCH ×3 (02:17→20:42)
[2019-07-29] MEDS ORDERED: MIDAZOLAM HCL 1MG/1ML-2 ML VIAL IV ONE (03:00)
[2019-07-29] MEDS ORDERED: fentaNYL CITRATE 100 MCG/2 ML VL IV ONE (03:00)
--- NOTE | 2019-07-29 03:40 | NUR ---
PT SHOUTING WANTS TO GO HOME AND YELLING FOR HIS MOTHER. REORIENTED PT BUT REFUSES TO LISTEN. Addendum: 07/29/19 at 0639 by Rahul Escoto RN WRONG PATIENT.
[2019-07-29 04:15] LABS: Basophils # (auto) 0 10 ^3/uL (0-0.2); Basophils % (auto) 0.3 % (0.0-2.0); Eosinophils # (auto) 0 10 ^3/uL (0-0.8); Eosinophils % (auto) 0.1 % (0.0-7.0); Lymphocytes # (auto) 0.9 10 ^3/uL (0.4-5.4); Lymphocytes % (auto) 13.7 % (10.0-50.0); Mean Corpuscular Hemoglobin 26.8 pg (28.0-32.0); Mean Corpuscular Hgb Conc. 31.8 g/dL (32.0-36.0); Mean Corpuscular Volume 84.4 fL (80.0-100.0); Monocytes # (auto) 0.2 10 ^3/uL (0-1.3); Monocytes % (auto) 3.6 % (0.0-12.0); Neutrophils # (auto) 5.5 10 ^3/uL (1.6-8.6); Neutrophils % (auto) 82.3 % (37.0-80.0); Nucleated Red Blood Cells % 0.1 %; Platelet Count (auto) 525 10^3/uL (140-450); Red Blood Cells 4.86 10^6/uL (4.5-5.90); Red Cell Distribution Width 13.6 % (11.8-14.3); White Blood Cell 6.7 10^3/uL (4.4-10.8)
[2019-07-29 04:37] LABS: Calcium 8.5 mg/dL (8.5-10.1); Magnesium 2.6 mg/dL (1.6-2.6); Potassium 3.9 mmol/L (3.5-5.1)
[2019-07-29 04:47] LABS: Albumin 2.6 g/dL (3.4-5.0); BUN/Creatinine Ratio 15.2; Bilirubin, Total 0.5 mg/dL (0.2-1.0); CRP High Sensitivity 2.04 mg/dL (< 0.3); Total Protein 8.4 g/dL (6.4-8.2)
[2019-07-29] MEDS: SODIUM CHL 3% 500 ML BAG IN SCH (06:00)
[2019-07-29] MEDS: PIPERACILLIN-TAZOB 3.375GM 100 ML IV SCH ×3 (06:35→19:27)
--- NOTE | 2019-07-29 06:38 | NUR ---
PT SITTING IN BED TUGGING ON ARM TO REMOVE RESTRAINTS. MEDICATED PER MD ORDERS. Addendum: 07/29/19 at 0729 by Rahul Escoto RN WRONG PATIENT.
[2019-07-29] MEDS: ALBUTEROL SULF 2.5 MG/0.5ML(0.5%) NEB SOLN NEB SCH ×3 (06:46→22:15)
--- NOTE | 2019-07-29 07:29 | NUR ---
ENDORSED CARE TO DAY NURSE PT RESTING IN BED WITH NO DISTRESS NOTED.
--- NOTE | 2019-07-29 09:00 | NUR ---
AM ASSESSMENT COMPLETED. ALARMS VERIFIED, REPOSITIONED FOR COMFORT. REMAINS ISOLATED ON AIRBORNE PRECAUTIONS FOR COVID 19. ALL CARE BEEN CLUSTERED. ORAL CARE PROVIDED. UPDATED PT'S FAMILY ON PT'S CONDITION.
[2019-07-29] MEDS: AZITHROMYCIN 500MG/ 250ML 250 ML IV SCH (09:12)
[2019-07-29] MEDS: PROPOFOL 100 ML IV SCH (09:15)
[2019-07-29] MEDS: ASCORBIC ACID 1,000 MG TAB PO SCH (09:16)
[2019-07-29] MEDS: ASPirin 81 mg TAB PO SCH (09:16)
[2019-07-29] MEDS: CHOLECALCIFEROL (VITD3) 1,000UNIT=25mCg TAB PO SCH (09:17)
[2019-07-29] MEDS: ENOXAPARIN SOD 100 MG/1 ML SYRINGE SC SCH ×2 (09:48→20:49)
--- NOTE | 2019-07-29 11:49 | NUR ---
assessment Patient is a 59 year old male on a vent in [place]. Patient is Covid 19 positive. Per patients daughter Maria Alejandra prior to admission patient lived home with her and other family members. So far Maria Alejandra is the only one with her results back for the covid testing and she tested positive also. Per Maria Alejandra the whole family is self quarantined. Prior to admission patient was independent with no equipment. Patients PCP is Dr Sim. I informed Maria Alejandra that patients post discharge needs to be determined after extubation and prior to discharge. Maria Alejandra verbalized understanding. Addendum: 07/29/19 at 1154 by Codie PALACIOS Amended: Links added.
[2019-07-29] MEDS: FUROSEMIDE 100 MG/10ML VIAL IV SCH (12:25)
[2019-07-29] MEDS: PANTOPRAZOLE 40 MG/10 ML VIAL INJ IV SCH (12:25)
[2019-07-29] MEDS: ZINC SULFATE 220mg CAP or TAB PO SCH (12:26)
[2019-07-29] MEDS: fentaNYL Drip 2500mCg/250mlNS 250 ML IV SCH (12:45)
[2019-07-29] MEDS: NOREPINEPHRINE 8 MG/250ML KIT 250 ML IV SCH (14:00)
[2019-07-29] MEDS ORDERED: ACETYLCYSTEINE 20%(200MG/ML) SOL 4ML NEB ONE (14:30)
--- NOTE | 2019-07-29 17:35 | NUR ---
PT FULLY AWAKE FOLLOWING COMMANDS. IN [place], I INSTRUCTED TO HIM ABOUT CPAP TRIAL HE UNDERSTANDS, NODS HEAD IN AGREEMENT.
[2019-07-29] MEDS ORDERED: DexMEDEtomidine 400 MCG in D5W 5% 96 ML IV SCH (17:57)
[2019-07-29] MEDS ORDERED: POTASSIUM CHL 20MEQ/100ML 100 ML IV ONE (18:45)
--- NOTE | 2019-07-29 19:13 | NUR ---
Respiratory note: CPAP TRIAL INITIATED HR 123, RR 27, SPO2 100%, BP 121/66. VT 906. ABG TO FOLLOW IN 1HR.
[2019-07-29] MEDS: acetaZOLAMIDE 250 MG TAB NG SCH ×2 (19:29→20:43)
[2019-07-29] MEDS ORDERED: FUROSEMIDE 100 MG/10ML VIAL IV ONE (20:15)
--- NOTE | 2019-07-29 20:27 | NUR ---
Respiratory note: CPAP PARAMETERS AND ABG RESULTS REPORTED TO DR. MARVIN. ORDERS GIVEN TO PLACE PT BACK ON PREVIOUS VENT SETTING FOR THE NIGHT. REPEAT CPAP TRIAL IN AM.
[2019-07-29] MEDS: ATORVASTATIN 20 MG TAB PO SCH (20:43)
[2019-07-29] MEDS: ACETYLCYSTEINE 20%(200MG/ML) SOL 4ML NEB SCH (22:15)
[2019-07-30] VITALS (78 sets, daily range): BP systolic 98–142; BP diastolic 31–86
[2019-07-30] MEDS: PIPERACILLIN-TAZOB 3.375GM 100 ML IV SCH ×5 (00:11→23:54)
[2019-07-30] MEDS: MIDAZOLAM DRIP 50 mg/50mL 50 ML IV SCH (02:42)
[2019-07-30 04:23] LABS: Basophils # (auto) 0 10 ^3/uL (0-0.2); Eosinophils # (auto) 0 10 ^3/uL (0-0.8); Hematocrit 40.3 % (41.0-53.0); Lymphocytes # (auto) 0.9 10 ^3/uL (0.4-5.4); Lymphocytes % (auto) 9.6 % (10.0-50.0); Mean Corpuscular Volume 84.2 fL (80.0-100.0); Monocytes # (auto) 0.4 10 ^3/uL (0-1.3); Red Blood Cells 4.79 10^6/uL (4.5-5.90)
[2019-07-30 04:25] LABS: Basophils % (auto) 0.4 % (0.0-2.0); Hemoglobin 13.2 g/dL (13.5-17.5); Mean Corpuscular Hemoglobin 27.7 pg (28.0-32.0); Mean Corpuscular Hgb Conc. 32.8 g/dL (32.0-36.0); Monocytes % (auto) 4.6 % (0.0-12.0); Neutrophils # (auto) 8.1 10 ^3/uL (1.6-8.6); Neutrophils % (auto) 85.4 % (37.0-80.0); Nucleated Red Blood Cells % 0.1 %; Platelet Count (auto) 514 10^3/uL (140-450); Potassium 3.6 mmol/L (3.5-5.1); White Blood Cell 9.5 10^3/uL (4.4-10.8)
[2019-07-30 04:35] LABS: Magnesium 2.7 mg/dL (1.6-2.6); Total Protein 8.4 g/dL (6.4-8.2)
[2019-07-30 04:49] LABS: Phosphorus 3.7 mg/dL (2.5-4.90)
[2019-07-30 04:50] LABS: Albumin 2.7 g/dL (3.4-5.0); Bilirubin, Total 0.3 mg/dL (0.2-1.0); CRP High Sensitivity 0.906 mg/dL (< 0.3)
[2019-07-30] MEDS: ACETYLCYSTEINE 20%(200MG/ML) SOL 4ML NEB SCH ×3 (05:44→23:06)
[2019-07-30] MEDS: ALBUTEROL SULF 2.5 MG/0.5ML(0.5%) NEB SOLN NEB SCH ×3 (05:44→23:05)
[2019-07-30] MEDS ORDERED: DexAMETHasone SOD PHOS 4 MG/1ML SDV INJ IV ONE (06:00)
[2019-07-30] MEDS ORDERED: GLYCOPYRROLATE 0.2 MG/ML 1ML VIAL IV ONE (06:00)
--- NOTE | 2019-07-30 08:10 | NUR ---
SPOKE WITH DAUGHTER LEANNA PROVIDED PASSWORD, UPDATED ON CURRENT STATUS AND PLAN OF CARE. ADDRESSED CONCERNS
[2019-07-30] MEDS: fentaNYL Drip 2500mCg/250mlNS 250 ML IV SCH (09:29)
--- NOTE | 2019-07-30 09:39 | NUR ---
SPOKE WITH DR MARVIN UPDATED ON STATUS THROUGHOUT THE NIGHT AND CURRENT STATUS. DISCUSSED PLAN OF CARE.
--- NOTE | 2019-07-30 10:25 | NUR ---
CPAP TRIAL STARTED BY RESPIRATORY THERAPIST. PATIENTS NODDED APPROPRIATELY TO SIMPLE QUESTION, NO DISTRESS NOTED. WITHIN VIEW OF NURSES STATION. WILL CONTINUE TO CLOSELY MONITOR
[2019-07-30] MEDS: ASPirin 81 mg TAB PO SCH (10:29)
[2019-07-30] MEDS: methylPREDNISolone SOD SUCC 40 MG/ML VL IV SCH ×2 (10:29→22:08)
[2019-07-30] MEDS: ASCORBIC ACID 1,000 MG TAB PO SCH (10:29)
[2019-07-30] MEDS: ENOXAPARIN SOD 100 MG/1 ML SYRINGE SC SCH ×2 (10:29→22:09)
[2019-07-30] MEDS: CHOLECALCIFEROL (VITD3) 1,000UNIT=25mCg TAB PO SCH (10:29)
[2019-07-30] MEDS: acetaZOLAMIDE 250 MG TAB NG SCH (10:29)
[2019-07-30] MEDS: ZINC SULFATE 220mg CAP or TAB PO SCH (10:29)
[2019-07-30] MEDS: PANTOPRAZOLE 40 MG/10 ML VIAL INJ IV SCH (10:29)
--- NOTE | 2019-07-30 11:28 | NUR ---
SPOKE WITH DR MRAVIN DISCUSSED PATIENTS STATUS AND CPAP TRIAL RESULTS, NEW ORDER RECEIVED.
--- NOTE | 2019-07-30 11:38 | NUR ---
DR MORTON AT BEDSIDE DISCUSSED PATIENT STATUS AND PLAN OF CARE. NO NEW ORDERS AT THIS TIME
--- NOTE | 2019-07-30 12:03 | NUR ---
TURNING HELD- PATIENT CURRENTLY ON CPAP
--- NOTE | 2019-07-30 12:30 | NUR ---
RT NOTE: Patient extubated by RT Extubation order received by Dr. MARVIN, RT at bedside. Patient extubated with no problems, patient tolerated well. Patient placed on HIGH FLOW NASAL CANNULA Sats prior to extubation 100%, following extubation 98%. Continue to monitor.
--- NOTE | 2019-07-30 12:35 | NUR ---
RT NOTE: PT WAS PLACED ON HIGH FLOW NASAL CANNULA AT THIS TIME. 30 LPM 30% FIO2 HR 99, SPO2 98%, PT TOLERATING WELL, WILL CONTINUE TO MONITOR PT.
[2019-07-30] MEDS: NOREPINEPHRINE 8 MG/250ML KIT 250 ML IV SCH (13:43)
--- NOTE | 2019-07-30 15:00 | NUR ---
DR MARVIN AT BEDSIDE DISCUSSED PLAN OF CARE WITH PATIENT.
--- NOTE | 2019-07-30 16:50 | NUR ---
SPOKE WITH DAUGHTER LEANNA PROVIDED PASSWORD. UPDATED ON CURRENT STATUS AND PLAN OF CARE.
--- NOTE | 2019-07-30 18:30 | NUR ---
RT NOTE ROUTINE CHECK DONE AT THIS TIME. NO CHANGES MADE. PT TOLERATING WELL NO ADVERSE REACTIONS. HFNC CHECK DONE FROM OUTSIDE GLASS DOOR DUE TO COVID 19. Addendum: 07/30/19 at 1831 by Aura Pierce RT Amended: Links added.
--- NOTE | 2019-07-30 19:54 | NUR ---
IV removal IV DC'd with clean sterile technique, catheter fully intact. Pressure dressing applied to site. Patient tolerated well.
--- NOTE | 2019-07-30 20:00 | NUR ---
SHIFT OPENING NOTE RECEIVED PATIENT FROM DAY SHIFT NURSE. PATIENT IS ON HIGH FLOW NC AT 30L AND 30%. SATDURATES AT 100%. NO SIGN OF DISTRESS OR SHORTNESS OF BREATH. PT IS OFF SEDATIONS AND LEVO, NO DRIPS RUNNING AT THIS TIME. BRITTON CATH DRAINING YELLOW URINE TO GRAVITY. RIGHT IJ 3 LUMEN. SCD'S ON. PHYSICAL ASSESSMENT COMPLETED, SEE INTERVENTIONS. WILL CLOSELY MONITOR.
[2019-07-30] MEDS ORDERED: acetaZOLAMIDE 250 MG TAB NG ONE (22:00)
[2019-07-30] MEDS: ATORVASTATIN 20 MG TAB PO SCH (22:11)
--- NOTE | 2019-07-30 22:28 | NUR ---
PO MEDS GIVEN NO SIGNS OF COUGHING OR CHOKING, PATIENT TOLERATED PO MEDICATIONS WELL, EDUCATED ON HOW TO USE YANKAUER, REINFORCED ON HOW TO USE CALL LIGHT. HOB IS 45 DEGREES.
--- NOTE | 2019-07-30 23:08 | NUR ---
RT NOTE ROUTINE HFNC CHECK. PT GIVEN HHN VIA AEROGEN AT THIS TIME. CONT ORDERED Addendum: 07/30/19 at 2308 by Aura Pierce RT Amended: Links added.
[2019-07-31] VITALS (23 sets, daily range): BP systolic 117–136; BP diastolic 70–82
--- NOTE | 2019-07-31 02:16 | NUR ---
RT NOTE ROUTINE HFNC CHECK. PT SLEEPING AND APPERS TO TOLERATE WELL. CONT ORDERED Addendum: 07/31/19 at 0222 by Aura Pierce RT Amended: Links added.
--- NOTE | 2019-07-31 03:22 | NUR ---
PM CARES PT RECEIVED BED LINEN CHANGE AND BATH.
[2019-07-31 05:04] LABS: BUN/Creatinine Ratio 28.2; Calcium 9.1 mg/dL (8.5-10.1); Potassium 3.7 mmol/L (3.5-5.1)
[2019-07-31] MEDS: PIPERACILLIN-TAZOB 3.375GM 100 ML IV SCH ×3 (05:33→18:25)
[2019-07-31] MEDS: ALBUTEROL SULF 2.5 MG/0.5ML(0.5%) NEB SOLN NEB SCH ×3 (06:00→23:03)
[2019-07-31] MEDS: ACETYLCYSTEINE 20%(200MG/ML) SOL 4ML NEB SCH ×3 (06:00→23:04)
--- NOTE | 2019-07-31 08:30 | NUR ---
ASSESSMENT COMPLETED SEE INTERVENTIONS, NO SIGNS RESP DISTRESS ON HIGH FLOW 02. CALL LIGHT IN REACH.
--- NOTE | 2019-07-31 10:10 | NUR ---
TRANSFERRED DAUGHTER PHONE CALL INTO PATIENT ROOM
[2019-07-31] MEDS: ENOXAPARIN SOD 100 MG/1 ML SYRINGE SC SCH ×2 (11:54→21:58)
[2019-07-31] MEDS: ASCORBIC ACID 1,000 MG TAB PO SCH (11:54)
[2019-07-31] MEDS: CHOLECALCIFEROL (VITD3) 1,000UNIT=25mCg TAB PO SCH (11:54)
[2019-07-31] MEDS: ZINC SULFATE 220mg CAP or TAB PO SCH (11:54)
[2019-07-31] MEDS: ASPirin 81 mg TAB PO SCH (11:54)
[2019-07-31] MEDS: PANTOPRAZOLE 40 MG/10 ML VIAL INJ IV SCH (11:55)
[2019-07-31] MEDS: methylPREDNISolone SOD SUCC 40 MG/ML VL IV SCH ×2 (11:55→21:58)
--- NOTE | 2019-07-31 14:25 | NUR ---
DR MORTON AT BEDSIDE NEW ORDER FOR TYLENOL 650 MG PO Q6H PRN FOR FEVER 100.4 OR ABOVE.
[2019-07-31] MEDS ORDERED: ACETAMINOPHEN 325 MG TAB PO PRN (14:30)
--- NOTE | 2019-07-31 14:38 | NUR ---
TITRATED HIGH FLOW SETTINGS. PT IS NOW ON 20 LPM, 30% FIO2. SPO2 99% AFTER TITRATION. RN AWARE OF CHANGE.
--- NOTE | 2019-07-31 16:30 | NUR ---
OOB TO CHAIR WITH MINIMAL ASSIST , TOLERATED WELL, VS STABLE. CALL LIGHT IN REACH.
--- NOTE | 2019-07-31 18:50 | NUR ---
ATTEMPTED TO USE BSC, UNABLE TO HAVE BM, ASSISTED BACK TO CHAIR WITH DINNER TRAY AND CALL LIGHT IN REACH. CELL PHONE FROM [facility]E TAKEN OUT BY HOUSE SUP AND GIVEN TO PATIENT. NO CHILD NUTRITION DIRECTOR IN [facility] AND WALLET IN [facility] STILL PATIENT/DTR AWARE. DENIES ANY PAIN. NO SIGNS OF RESPIRATORY DISTRESS.
--- NOTE | 2019-07-31 19:15 | NUR ---
Opening notes Assumed care, sitting on chair, awake and oriented, on High flow, 20L @ 30% FiO2, IV access patent and intact, holm catheter draining to a clear urine. Encouraged to call if he needs something. Will continue care.
--- NOTE | 2019-07-31 20:20 | NUR ---
DR. MARVIN AT BEDSIDE, UPDATED ON PT'S STATUS, NO NEW ORDER MADE.
--- NOTE | 2019-07-31 20:25 | NUR ---
ASSISTED BACK TO BED, VS REMAINED STABLE SAT 94%, MAINTAINED ON MOD.HIGH BACK REST.
--- NOTE | 2019-07-31 21:22 | NUR ---
RECEIVED A CALL FROM DTRLEANNA, UPDATED ON PT'S STATUS AFTER OBTAINING A PASSWORD. ALL QUESTIONS AND CONCERNS WERE ADDRESSED, VERBALIZED UNDERSTANDING.
[2019-07-31] MEDS: ATORVASTATIN 20 MG TAB PO SCH (21:58)
[2019-08-01] VITALS (10 sets, daily range): BP systolic 122–140; BP diastolic 74–87
[2019-08-01] MEDS: PIPERACILLIN-TAZOB 3.375GM 100 ML IV SCH ×4 (05:58→17:56)
[2019-08-01] MEDS: ACETYLCYSTEINE 20%(200MG/ML) SOL 4ML NEB SCH (07:00)
[2019-08-01] MEDS: ALBUTEROL SULF 2.5 MG/0.5ML(0.5%) NEB SOLN NEB SCH (07:00)
[2019-08-01] MEDS: PANTOPRAZOLE 40 MG/10 ML VIAL INJ IV SCH (09:54)
[2019-08-01] MEDS: FUROSEMIDE 20 MG/2 ML VIAL IV SCH (09:54)
[2019-08-01] MEDS: POTASSIUM CHL 10 Meq TABLET PO SCH (09:55)
[2019-08-01] MEDS: methylPREDNISolone SOD SUCC 40 MG/ML VL IV SCH ×2 (09:55→21:13)
[2019-08-01] MEDS: ZINC SULFATE 220mg CAP or TAB PO SCH (09:55)
[2019-08-01] MEDS: CHOLECALCIFEROL (VITD3) 1,000UNIT=25mCg TAB PO SCH (09:55)
[2019-08-01] MEDS: ASPirin 81 mg TAB PO SCH (09:55)
[2019-08-01] MEDS: ASCORBIC ACID 1,000 MG TAB PO SCH (09:55)
[2019-08-01] MEDS: ENOXAPARIN SOD 100 MG/1 ML SYRINGE SC SCH ×2 (09:56→21:14)
--- NOTE | 2019-08-01 10:20 | NUR ---
Family updated on pt status Family of DIAMANTE LEE updated on patient's status and condition after password verification. All questions and concerns addressed. Patient's daughter Maria Alejandra verbalized understanding, phone call transferred to patient's room.
--- NOTE | 2019-08-01 12:47 | NUR ---
DR MARVIN AT BEDSIDE MD UPDATED ON PATIENT'S STATUS AND HIGH FLOW NEED. ORDERS TO DISCONTINUE MUCOMYST AND ATTEMPT TO CHANGE FROM HIGH MARY JO TO OXYMIZER OR NASAL CANNULA. Angel CAMPOS. AWARE - AND AWARE OF MDI ORDERS.
--- NOTE | 2019-08-01 13:00 | NUR ---
COMFORT/OUT OF BED/I.S. PATIENT TRANSFERRED FROM BED TO BEDSIDE CHAIR WITH MINIMAL ASSISTANCE, COMPLETE BEDDING CHANGED. PATIENT PROVIDED WITH LUNCH TRAY. INCENTIVE SPIROMETER PROVIDED ORDERED BY MD AND PATIENT EDUCATED ON NEED AND USE OF I.S. - PATIENT PROVIDED RETURN DEMONSTRATION AND MEASURED 500 MLS WITH COUGH AFTER EACH USE. PATIENT VERBALIZED UNDERSTANDING.
[2019-08-01] MEDS: ALBUTEROL SULF HFA 90MCG INH 200DOSE IN SCH ×2 (14:30→22:44)
--- NOTE | 2019-08-01 14:30 | NUR ---
Respiratory note: TOOK PATIENT OFF HFNC AND PLACED ON 3L OXYMIZER. SCHEDULED MED NEB TX GIVEN AND TOLERATED WELL. HR 86, RR 16, SPO2 96%.
[2019-08-01] MEDS ORDERED: TEMAZEPAM 15 MG CAP PO PRN (15:00)
--- NOTE | 2019-08-01 16:08 | NUR ---
Nutrition Followup Notes Pt wt is 88 kg Pt is positive for COVID-19, in isolation. Pt with a Cardiac oral diet, appetite is poor aeb ave 38% x2 PO intake per RN doc. Will continue to closely monitor pertinent labs, PO intake and skin status prn. Will followup in 3-5 days Est Energy needs: [id number] kcals (17-20 kcal/kgBW) Est Protein needs: 134 gms/day (2 gm/kgIBW) Will continue to monitor and reassess prn. LABS: GLUC 112 H, ALB 2.7 H GI: Constipated, last BM unknown per RN doc. BS: 16 mod risk. Please refer to wound assessment report for full details. PES: Problem 1) Obesity r/t energy intake in excess of energy needs aeb 132% IBW and BMI of 30.8 kg/m2 2) Altered nutrition related lab values r/t current medical condition aeb hyperglyc, hypoalbuminemia Comments Will continue to monitor PO status, skin status, pertinent labs and weight trends. Will f/u in 2 to 3 days. 1) Continue to closely monitor pt NPO status 2) If pt remains NPO for the next 48 hours, consider EN nutrition support Jevity 1.2 @ 60 ml/hr goal rate when medically feasible and as tolerated 3) Gradually advance pt to oral diet when medically feasible and as tolerated 4) Refer pt to RD for nutrition/wt management education upon D/C 5) Continue current plan of care
--- NOTE | 2019-08-01 16:40 | NUR ---
ASSIST BACK TO BED PATIENT SITTING ON EDGE OF BED, PATIENT ASSISTED TO LAY DOWN DUE TO CORDS AND IV LINE. PATIENT ABLE TO PUSH HIMSELF BACK UP HIGH IN BED. VSS AND DOCUMENTED. CALL LIGHT AND ALL PERSONAL BELONGINGS WITHIN REACH. BED IN LOWEST POSITION, FALL AND SAFETY PRECAUTIONS IN PLACE.
--- NOTE | 2019-08-01 16:45 | NUR ---
I.S. DEMONSTRATION PATIENT DEMONSTRATED TO THIS NURSE USE OF I.S. AND MEASURING 1500 MLS. PATIENT ENCOURAGED TO CONTINUE USE, PATIENT VERBALIZED UNDERSTANDING.
--- NOTE | 2019-08-01 18:57 | NUR ---
HOSPITALIST AT BEDSIDE DR ALBERTS UPDATED ON PATIENT'S STATUS, VS AND OXYGEN USE. ORDERS GIVEN TO DISCONTINUE CVP MEASURING, I.S. AND UP NEEDED. Addendum: 08/01/19 at 1910 by Emily Carlson RN CORRECTION HOSPITALIST VISITS AT 1130 AND NOT 1857.
--- NOTE | 2019-08-01 19:10 | NUR ---
END OF SHIFT NOTE PATIENT RESTING IN BED WITH EYES CLOSED, NO DISTRESS NOTED, RESPIRATIONS EVEN AND UNLABORED. ENDORSED CONTINUED CARE TO CARPENTRY FOREMAN RN.
--- NOTE | 2019-08-01 19:30 | NUR ---
Opening Shift Note Assumed care of patient, awake and alert, resting on bed after dinner. Breathing even and nonlabored, on Oxymizer 3 LPM, No S/S of distress/SOB or pain. TLC at right IJ, flushed well, CDI site, Tegaderm slightly peeled off. 20G saline lock at right hand, flushed well, CDI site. Bed in low position, call light within reach, all alarms are audible, fall and safety precaution in place. SCD to both legs. Instructed on POC and to call for assist PRN, will continue to monitor for changes Q1hr and PRN.
[2019-08-01] MEDS: ATORVASTATIN 20 MG TAB PO SCH (21:13)
--- NOTE | 2019-08-01 21:15 | NUR ---
Condition update Pt's condition and v/s stable. Denied pain. Able to turn well on bed by self. Bed time medication given, including sleeping pill per Pt requested due to unable to sleep because the Hepa filter sound. Continue care.
[2019-08-02] VITALS (8 sets, daily range): BP systolic 118–139; BP diastolic 72–91
[2019-08-02] MEDS: PIPERACILLIN-TAZOB 3.375GM 100 ML IV SCH ×5 (00:28→23:44)
--- NOTE | 2019-08-02 00:30 | NUR ---
Condition update Pt slept well after sleeping pill. Condition and v/s stable. Continue monitoring.
--- NOTE | 2019-08-02 05:00 | NUR ---
Late entry, IS exercise Pt woke up, did IS exercise self. 1000ml x 5times.
--- NOTE | 2019-08-02 05:10 | NUR ---
Patient bathe/linen change Patient given morning bath. Patient wiped self in the front, RN wiped clean the back and legs. Kaminski's catheter care done with CHG wipes. Skin integrity assessed for any changes, skin intact, z-guard applied to sacrum for prevention. Partial linens changed. Tolerated well, Patient turned by self well without SOB and desaturation. Patient repositioned for comfort.
--- NOTE | 2019-08-02 05:30 | NUR ---
Unable to weigh, Bed scale broken. Addendum: 08/02/19 at 0722 by Quyen Jolly RN Amended: Links added.
--- NOTE | 2019-08-02 05:45 | NUR ---
IV sites C/S changed. TLC d/s peeled off. TLC d/s changed with sterile technique. Betadine ointment and Biopatch applied at the tip. Instruct on care and reason. Pt cooperated well. All ports flushed. Positive blood drawn back. 20G IV at right hand d/s changed with aseptic technique. Site CDI.
[2019-08-02] MEDS: ALBUTEROL SULF HFA 90MCG INH 200DOSE IN SCH ×2 (08:10→22:00)
--- NOTE | 2019-08-02 08:20 | NUR ---
CHANGED TO THE NASAL CANNULA AT 3LPM, SPO2 95% Addendum: 08/02/19 at 0822 by Litzy Lopez RT Amended: Links added.
[2019-08-02] MEDS: FUROSEMIDE 20 MG/2 ML VIAL IV SCH (10:00)
[2019-08-02] MEDS: ASPirin 81 mg TAB PO SCH (10:00)
[2019-08-02] MEDS: methylPREDNISolone SOD SUCC 40 MG/ML VL IV SCH (10:00)
[2019-08-02] MEDS: PANTOPRAZOLE 40 MG/10 ML VIAL INJ IV SCH (10:00)
[2019-08-02] MEDS: ZINC SULFATE 220mg CAP or TAB PO SCH (10:01)
[2019-08-02] MEDS: ASCORBIC ACID 1,000 MG TAB PO SCH (10:01)
[2019-08-02] MEDS: POTASSIUM CHL 10 Meq TABLET PO SCH (10:01)
[2019-08-02] MEDS: CHOLECALCIFEROL (VITD3) 1,000UNIT=25mCg TAB PO SCH (10:01)
[2019-08-02] MEDS: ENOXAPARIN SOD 100 MG/1 ML SYRINGE SC SCH ×2 (10:02→21:58)
--- NOTE | 2019-08-02 10:02 | NUR ---
Family updated on pt status Family of DIAMANTE LEE updated on patient's status and condition after password verification. All questions and concerns addressed. Maria Alejandra, patient's daughter verbalized understanding.
--- NOTE | 2019-08-02 10:40 | NUR ---
WOUND CARE NOTE: Wound care in to see patient for skin integrity monitoring. Patient continue resting in SDU bed in Rm. 266. Patient remain on airborne precaution positive COVID19. Patient has been extubated and now on O2 3L Oxymizer. He's able to move and turn. Staff reported that patient gets up and uses BSC. His Thomas score is 17. Patient remain wound free, per bedside nurse. RECOMMENDATION:Continuation of all wound care orders prescribed by MD, continue with skin/wound preventative plan of care, continue monitoring by wound care while patient is hospitalized.
--- NOTE | 2019-08-02 17:25 | NUR ---
PAGED PULMONOLOGY REGARDING ABG AND CURRENT PO2, AWAITING RESPONSE. [facility] AWARE OF PENDING RETURN CALL TO APPROVE TELE DOWNGRADE ORDERED BY HOSPITALIST.
--- NOTE | 2019-08-02 20:00 | NUR ---
Opening Shift Note Assumed care of patient, awake and alert, lying on bed, resting after dinner. Breathing even and nonlabored on O2NC 3LPM, no coughing, no S/S of distress/SOB or pain. TLC at right IJ, CDI site, brown port flushed well and positive blood drawn back, white and blue port sluggish upon flushing. 20G IV at right hand CDI site, infusing Zosyn. Kaminski's catheter hung to gravity with clear yellowish urine and small sediments. Bed in low position, call light within reach, all alarms are audible, fall and safety precaution in place. SCD on both legs. Instructed on POC/ transfer plan and to call for assist PRN, will continue to monitor for changes Q1hr and PRN.
--- NOTE | 2019-08-02 21:00 | NUR ---
Report given to Lexie KHAN.
--- NOTE | 2019-08-02 21:20 | NUR ---
Transfer to 235 Pt left AFUA 266 to Ante room by wheelchair with RN, tele box and portable oxygen. Pt's condition stable. All patient's belonging transferred with patient.
--- NOTE | 2019-08-02 21:42 | NUR ---
TELEMETRY TRANSFER FROM [facility] DIAMANTE LEE admitted to Telemetry unit after SBAR received. Patient oriented to LYNN PLASCENCIA, RN primary RN, unit, room, bed, and unit policies regarding patient care and visiting hours. Patient now on continuous telemetry monitoring, tele box # 1 and telemetry reading on arrival to unit is sr 77. Patient placed on bedside oxygen 3 L via nasal cannula, Skin intact, holm catheter patent and draining below bladder without kinks, weighed by bedscale and encouraged to call if they need something. fall precautions in place. All questions and concerns addressed, patient verbalized understanding.
[2019-08-02] MEDS: ATORVASTATIN 20 MG TAB PO SCH (21:58)
[2019-08-03 02:03] VITALS: BP 130/86
[2019-08-03 04:58] LABS: Calcium 8.9 mg/dL (8.5-10.1)
[2019-08-03 05:00] LABS: BUN/Creatinine Ratio 30.3; CRP High Sensitivity 0.1 mg/dL (< 0.3)
[2019-08-03 05:26] VITALS: BP 122/73
[2019-08-03] MEDS: PIPERACILLIN-TAZOB 3.375GM 100 ML IV SCH ×3 (05:27→17:32)
--- NOTE | 2019-08-03 06:04 | NUR ---
informed md day of potassium of 3.0. new orders received orders read back and verified by MD Day.
[2019-08-03] MEDS ORDERED: POTASSIUM CHL 20MEQ/100ML 100 ML IV ONE ×2 (06:15→08:02)
--- NOTE | 2019-08-03 07:10 | NUR ---
report given to dayshift rn patient denies sob distress or pain.
[2019-08-03] MEDS: ALBUTEROL SULF HFA 90MCG INH 200DOSE IN SCH ×3 (07:36→21:36)
--- NOTE | 2019-08-03 07:36 | NUR ---
Respiratory note: Administered breathing tx via MDI with spacer, pt tolerated well, no adverse reactions noted. HR 91, RR 16, SPO2 93% on 2lpm nasal cannula. Pt awake and alert, resting comfortably in bed, denies SOB. No s/s of respiratory distress noted. Will return for next scheduled tx.
--- NOTE | 2019-08-03 08:00 | NUR ---
OPENING SHIFT NOTE ASSUMED CARE OF PATIENT AWAKE AND ALERT. NO S/S OF DISTRESS NOTED OR COMPLAINTS OF PAIN. PROPER ISOLATION PRECAUTIONS IN PLACE. PATIENT IS ON 3L NC WITH AN O2 SATURATION OF 97% AND PATIENT IS AFEBRILE. PATIENT UPDATED POC FOR THE DAY AND ALL QUESTIONS ANSWERED. BED IS IN LOWEST, LOCKED POSITION WITH SIDE RAILS UP X2 AND CALL LIGHT WITHIN REACH. WILL CONTINUE TO MONITOR Q1H AND PRN.
[2019-08-03 09:00] VITALS: BP 142/92
[2019-08-03] MEDS: PANTOPRAZOLE 40 MG/10 ML VIAL INJ IV SCH (09:32)
[2019-08-03] MEDS: FUROSEMIDE 20 MG/2 ML VIAL IV SCH ×2 (09:32→17:32)
[2019-08-03] MEDS: ENOXAPARIN SOD 100 MG/1 ML SYRINGE SC SCH ×2 (09:33→21:37)
[2019-08-03] MEDS: ZINC SULFATE 220mg CAP or TAB PO SCH (09:33)
[2019-08-03] MEDS: CHOLECALCIFEROL (VITD3) 1,000UNIT=25mCg TAB PO SCH (09:33)
[2019-08-03] MEDS: POTASSIUM CHL 10 Meq TABLET PO SCH (09:33)
[2019-08-03] MEDS: ASCORBIC ACID 1,000 MG TAB PO SCH (09:33)
[2019-08-03] MEDS: ASPirin 81 mg TAB PO SCH (09:33)
[2019-08-03] MEDS ORDERED: methylPREDNISolone SOD SUCC 125 MG/2 ML VL IV SCH (10:00)
[2019-08-03 13:00] VITALS: BP 134/85
--- NOTE | 2019-08-03 14:14 | NUR ---
APPLIED BEHAVIOR SPECIALIST AT BEDSIDE GINETTE APPLIED BEHAVIOR SPECIALIST AT BEDSIDE DISCUSSING POC WITH PATIENT.
--- NOTE | 2019-08-03 14:15 | NUR ---
Respiratory note: Administered breathing tx via MDI with spacer, pt tolerated well, no adverse reactions noted. HR 100, RR 18, SPO2 95% on 3lpm nasal cannula. Pt says feeling better, denies SOB. No s/s of respiratory distress noted.
[2019-08-03] MEDS ORDERED: ESCI20TA51 PO (14:28)
[2019-08-03] MEDS ORDERED: ATO40T PO (14:28)
[2019-08-03] MEDS ORDERED: SPIR25TA8 PO (14:28)
[2019-08-03] MEDS ORDERED: FURO40TA4 PO (14:28)
[2019-08-03] MEDS ORDERED: CLOP75TA41 PO (14:28)
[2019-08-03] MEDS ORDERED: TRAZ100T3 PO (14:28)
[2019-08-03] MEDS ORDERED: TAMS0.4C36 PO (14:28)
[2019-08-03] MEDS ORDERED: DOCU-94 PO (14:28)
[2019-08-03] MEDS ORDERED: BUPR100T14 PO (14:28)
--- NOTE | 2019-08-03 16:06 | NUR ---
AT BEDSIDE DR MARVIN AT BEDSIDE ROUNDING ON PATIENT.
--- NOTE | 2019-08-03 16:42 | NUR ---
Holm catheter dc'd Order to discontinue holm catheter. Holm dc'd with clean technique following deflation of balloon. Patient tolerated well with no complaints of discomfort.
[2019-08-03 17:00] VITALS: BP 123/77
--- NOTE | 2019-08-03 17:30 | NUR ---
OXYGEN PATIENT AMBULATING IN HIS ROOM WITHOUT O2. SATURATION IS 94%. PATIENT HAS NO COMPLAINT OF SOB. INSTRUCTED PATIENT TO REAPPLY NC IF SOB OCCURS. PATIENT VERBALIZED UNDERSTANDING. WILL CONTINUE TO MONITOR.
--- NOTE | 2019-08-03 19:35 | NUR ---
OPENING SHIFT NOTE: PATIENT RESTING IN BED HIGH FOWLERS, RESPIRATIONS EVEN AND UNLABORED. PATIENT DENIES ANY SOB AT THIS TIME. PATIENT AMBULATING WELL ON HIS OWN. PROPER ISOLATION PRECAUTIONS IN PLACE. DENIES ANY PAIN. INSTRUCTED ON USE IS. RETURNED PROPER DEMONSTRATION. UPDATED ON POC. ALL QUESTIONS ANSWERED. BED IN LOWEST LOCKED POSITION WITH CALL LIGHT WITHIN REACH. WILL CONTINUE CARE.
--- NOTE | 2019-08-03 20:09 | NUR ---
REGARDING OXYGEN: PATIENT TITRATED DOWN TO 2L NASAL CANNULA. PATIENT TOLERATING WELL HR 89. 02 95%. DENIES ANY SOB. WILL CONTINUE TO MONITOR.
[2019-08-03 20:51] VITALS: BP 136/79
[2019-08-03] MEDS ORDERED: POTASSIUM EFFERVESENT TAB 25 MEQ GT ONE (21:00)
[2019-08-03] MEDS ORDERED: POTASSIUM EFFERVESENT TAB 25 MEQ PO ONE (21:15)
[2019-08-03] MEDS: ATORVASTATIN 20 MG TAB PO SCH (21:36)
--- NOTE | 2019-08-03 21:36 | NUR ---
Respiratory note: ALBUTEROL GIVEN VIA MDI (180 MCG) BY RN. WILL CONTINUE TO MONITOR.
[2019-08-04] MEDS: PIPERACILLIN-TAZOB 3.375GM 100 ML IV SCH ×4 (00:04→17:58)
[2019-08-04 05:00] VITALS: BP 147/83
[2019-08-04] MEDS: ALBUTEROL SULF HFA 90MCG INH 200DOSE IN SCH ×3 (05:28→21:33)
[2019-08-04] MEDS: FUROSEMIDE 20 MG/2 ML VIAL IV SCH (05:28)
--- NOTE | 2019-08-04 07:25 | NUR ---
Respiratory note: HR 105, RR 16, SPO2 93% ON 2 L NC, BS CLEAR AND DIMINISHED. MDI GIVEN EARLIER BY RN. NO SIGNS OR SYMPTOMS OF RESPIRATORY DISTRESS NOTED AT THIS TIME
--- NOTE | 2019-08-04 08:00 | NUR ---
OPENING SHIFT NOTE ASSUMED CARE OF PATIENT AWAKE AND ALERT. NO S/S OF DISTRESS NOTED OR COMPLAINTS OF PAIN. PROPER ISOLATION PRECAUTIONS IN PLACE. PATIENT IS ON 3L NC WITH AN O2 SATURATION OF 95% AND PATIENT IS AFEBRILE. PATIENT UPDATED POC FOR THE DAY AND ALL QUESTIONS ANSWERED. BED IS IN LOWEST, LOCKED POSITION WITH SIDE RAILS UP X2 AND CALL LIGHT WITHIN REACH. WILL CONTINUE TO MONITOR Q1H AND PRN.
[2019-08-04] MEDS ORDERED: methylPREDNISolone SOD SUCC 125 MG/2 ML VL IV SCH (10:00)
[2019-08-04] MEDS: ASPirin 81 mg TAB PO SCH (10:24)
[2019-08-04] MEDS: ZINC SULFATE 220mg CAP or TAB PO SCH (10:24)
[2019-08-04] MEDS: ASCORBIC ACID 1,000 MG TAB PO SCH (10:24)
[2019-08-04] MEDS: CHOLECALCIFEROL (VITD3) 1,000UNIT=25mCg TAB PO SCH (10:24)
[2019-08-04] MEDS: ENOXAPARIN SOD 100 MG/1 ML SYRINGE SC SCH (10:25)
--- NOTE | 2019-08-04 12:30 | NUR ---
CENTRAL LINE DISCOVERED PATIENT'S NECK AND GOWN SATURATED IN BLOOD COMING FROM AREA OF CENTRAL LINE. PATIENT STATED HE WAS WALKING AROUND HIS ROOM FOR 20 MINUTES PRIOR. UPON INVESTIGATION, ONE SUTURE WAS INTACT WHILE THE OTHER HAD COME UNDONE. PRESSURE HELD FOR 5 MINUTES UNTIL BLEEDING STOPPED, CENTRAL LINE REMOVED WITH CATHETER TIP INTACT, AND PRESSURE DRESSING APPLIED. DR MORTON MADE AWARE. VS ARE STABLE AND PATIENT IS ASYMPTOMATIC. WILL CONTINUE TO MONITOR.
--- NOTE | 2019-08-04 12:35 | NUR ---
Nutrition Followup Notes wt: 88.7 kg Pt is positive for COVID-19, in isolation successfully extubated. Pt with a Cardiac soft oral diet, with adequte PO of 75% x6 per RN doc Est Energy needs: 9964-7494 kcals (17-20 kcal/kgBW). Est Protein needs: 134 gms/day (2 gm/kgIBW). Will continue to monitor and reassess prn. LABS: BUN 30 H, rest lab wnl GI: pt had 1 BM on 08/02 per RN doc. BS: 16 mod risk. Please refer to wound assessment report for full details. noted pt on Vit C and zn PES: Problem 1) Obesity r/t energy intake in excess of energy needs aeb 132% IBW and BMI of 30.8 kg/m2 2) Altered nutrition related lab values r/t current medical condition aeb hyperglyc, hypoalbuminemia Comments Will continue to monitor PO status, skin status, pertinent labs and weight trends. Will f/u in 2 to 3 days. 1) Refer pt to RD for nutrition/wt management education upon D/C. 2) Continue current plan of care
[2019-08-04 13:29] LABS: Eosinophils # (auto) 0 10 ^3/uL (0-0.8); Monocytes # (auto) 0.2 10 ^3/uL (0-1.3)
[2019-08-04 13:30] LABS: Basophils # (auto) 0.1 10 ^3/uL (0-0.2); Basophils % (auto) 0.9 % (0.0-2.0); Eosinophils % (auto) 0.5 % (0.0-7.0); Hematocrit 48.7 % (41.0-53.0); Lymphocytes # (auto) 0.9 10 ^3/uL (0.4-5.4); Lymphocytes % (auto) 15.4 % (10.0-50.0); Mean Corpuscular Hgb Conc. 32.7 g/dL (32.0-36.0); Mean Corpuscular Volume 82.6 fL (80.0-100.0); Monocytes % (auto) 3.4 % (0.0-12.0); Neutrophils # (auto) 4.7 10 ^3/uL (1.6-8.6); Neutrophils % (auto) 79.8 % (37.0-80.0); Nucleated Red Blood Cells % 0.1 %; Red Cell Distribution Width 14.2 % (11.8-14.3); White Blood Cell 5.8 10^3/uL (4.4-10.8)
[2019-08-04 13:48] LABS: BUN/Creatinine Ratio 28.1; Calcium 9.1 mg/dL (8.5-10.1); Potassium 3.6 mmol/L (3.5-5.1)
[2019-08-04 13:54] LABS: Platelet Count (auto) 602 10^3/uL (140-450)
--- NOTE | 2019-08-04 14:00 | NUR ---
MD AT BEDSIDE DR MORTON UPDATING PATIENT ON POC. PATIENT VERBALIZED UNDERSTANDING.
--- NOTE | 2019-08-04 14:10 | NUR ---
Respiratory note: HR 90, RR 16, SPO2 94% ON RA. MDI DONE BY RT,TOLERATED WELL. NO SIGNS OR SYMPTOMS OF RESPIRATORY DISTRESS NOTED AT THIS TIME.
--- NOTE | 2019-08-04 17:22 | NUR ---
AT BEDSIDE DR MARVIN AT BEDSIDE UPDATING PATIENT ON POC. PATIENT VERBALIZED UNDERSTANDING.
--- NOTE | 2019-08-04 19:15 | NUR ---
Opening Shift Note Assumed care of patient, awake, alert and oriented x4, on room air with even and unlabored respirations, no S/S of distress/SOB or pain. Patient able to ambulate and turn independently, bed in lowest locked position, side rails up x2, and call light within reach. Instructed on POC and to call for assist PRN, will continue to monitor for changes Q1hr and PRN.
[2019-08-04 19:58] VITALS: BP 147/83
[2019-08-04] MEDS: ATORVASTATIN 20 MG TAB PO SCH (21:33)
[2019-08-05] MEDS: PIPERACILLIN-TAZOB 3.375GM 100 ML IV SCH ×2 (00:23→06:22)
[2019-08-05 06:45] LABS: Monocytes # (auto) 0.6 10 ^3/uL (0-1.3); Monocytes % (auto) 10.4 % (0.0-12.0)
[2019-08-05 06:47] LABS: Basophils # (auto) 0 10 ^3/uL (0-0.2); Basophils % (auto) 0.4 % (0.0-2.0); Eosinophils # (auto) 0.3 10 ^3/uL (0-0.8); Eosinophils % (auto) 4.4 % (0.0-7.0); Hematocrit 44.1 % (41.0-53.0); Hemoglobin 14.7 g/dL (13.5-17.5); Lymphocytes # (auto) 2.2 10 ^3/uL (0.4-5.4); Lymphocytes % (auto) 38.8 % (10.0-50.0); Mean Corpuscular Hemoglobin 27.7 pg (28.0-32.0); Mean Corpuscular Hgb Conc. 33.4 g/dL (32.0-36.0); Neutrophils # (auto) 2.6 10 ^3/uL (1.6-8.6); Nucleated Red Blood Cells % 0.2 %; Platelet Count (auto) 475 10^3/uL (140-450); Red Blood Cells 5.32 10^6/uL (4.5-5.90); Red Cell Distribution Width 13.7 % (11.8-14.3); White Blood Cell 5.7 10^3/uL (4.4-10.8)
[2019-08-05 07:01] LABS: BUN/Creatinine Ratio 28.4; Calcium 8.6 mg/dL (8.5-10.1); Potassium 3.1 mmol/L (3.5-5.1)
--- NOTE | 2019-08-05 07:14 | NUR ---
Opening Shift Note Assumed care of patient, awake and alert. No S/S of distress/SOB or pain. Instructed on POC and to call for assist PRN, will continue to monitor for changes Q1hr and PRN.
[2019-08-05] MEDS: ALBUTEROL SULF HFA 90MCG INH 200DOSE IN SCH ×2 (07:18→14:59)
[2019-08-05] MEDS: CHOLECALCIFEROL (VITD3) 1,000UNIT=25mCg TAB PO SCH (09:33)
[2019-08-05] MEDS: ASCORBIC ACID 1,000 MG TAB PO SCH (09:33)
[2019-08-05] MEDS: ASPirin 81 mg TAB PO SCH (09:34)
[2019-08-05] MEDS: ZINC SULFATE 220mg CAP or TAB PO SCH (09:34)
[2019-08-05] MEDS ORDERED: POTASSIUM EFFERVESENT TAB 25 MEQ PO ONE (10:00)
[2019-08-05] MEDS ORDERED: FUROSEMIDE 20 MG TAB PO ONE (12:00)
--- NOTE | 2019-08-05 16:22 | NUR ---
D/C Planning Per SS consult for home oxygen. Faxed clinical information to [employer]. Per Radha with [employer] oxygen portable will be deliver to front lobby between 16:300-17:30 and concentrate oxygen to patient home. ERIN Cunningham was informed.
--- NOTE | 2019-08-05 16:54 | NUR ---
patients oxygen tank delivered
[2019-08-05] MEDS ORDERED: FURO1TAB33 PO (16:56)
[2019-08-05 17:17] VITALS: BP 131/74
--- NOTE | 2019-08-05 17:49 | NUR ---
Discharge instructions given as ordered. Encourage to follow up with PMD as instructed. All questions and concerns addressed. Patient verbalized understanding. Medication reconciliation form completed and copy given to patient. IV removed with catheter intact, pressure dressing applied. Telemetry unit returned to ICU. Patient taken to vehicle via wheelchair with all personal belongings, accompanied by staff and family member. No distress noted at time of departure. Patient educated on self isolation and need to self quarantine. Patient educated to be retested in 2 weeks. Patient educated on discharge instructions and verbalized understanding.
[2019-08-06] MEDS ORDERED: FUROSEMIDE 20 MG TAB PO SCH (10:00)
== END 2019-08-05 17:48 | disposition home or self-care (01) | DRG 870 ==
LOC: ER 14:19 → EDBD 14:19 → TELE 14:20 → DOU IN ICU 21:08 → TELE-EAST 08-02 21:30
PROVIDERS: ADMIT Hospitalist; ATTEND Internal Medicine Nephrology
PROC: 5A1955Z Respiratory Ventilation, Greater than 96 Consecutive Hours (ICD-10-PCS; principal; 2019-07-24)
PROC: 02HV33Z Insertion of Infusion Device into Superior Vena Cava, Percutaneous Approach (ICD-10-PCS; 2019-07-24)
PROC: 0BH17EZ Insertion of Endotracheal Airway into Trachea, Via Natural or Artificial Opening (ICD-10-PCS; 2019-07-24)
DX: A41.89 Other specified sepsis (principal); R65.21 Severe sepsis with septic shock; U07.1 COVID-19; J12.89 Other viral pneumonia; J96.01 Acute respiratory failure with hypoxia; I21.A1 Myocardial infarction type 2; I50.33 Acute on chronic diastolic (congestive) heart failure; T82.838A Hemorrhage due to vascular prosthetic devices, implants and grafts, initial encounter; D68.59 Other primary thrombophilia; Z99.11 Dependence on respirator [ventilator] status; E87.6 Hypokalemia; E66.9 Obesity, unspecified; Y83.8 Other surgical procedures as the cause of abnormal reaction of the patient, or of later complication, without mention of misadventure at the time of the procedure; E78.5 Hyperlipidemia, unspecified; I11.0 Hypertensive heart disease with heart failure; Z68.30 Body mass index [BMI] 30.0-30.9, adult; Z79.01 Long term (current) use of anticoagulants; Z79.82 Long term (current) use of aspirin; Z83.3 Family history of diabetes mellitus; Z82.49 Family history of ischemic heart disease and other diseases of the circulatory system; Z79.899 Other long term (current) drug therapy
CPT/HCPCS: 31500; 36415; 36556; 36600; 71045; 74018; 80048; 80053; 80061; 80307; 81001; 82728; 82805; 83036; 83605; 83615; 83735; 83880; 84100; 84443; 84484; 85025; 85379; 85610; 85652; 85730; 86141; 87040; 87070; 87081; 87086; 87205; 87804; 87880; 93005; 94002; 94003; 94640; 96365; 96367; 96375; 99291; C9113; G0378; J0330; J0696; J1100; J2250; J2543; J2704; J3480; J7060